=== PATIENT | female | born 1970 | race Caucasian/White ===

== ENCOUNTER 2025-03-29 19:58 | Emergency (ER) | payer SELFPAY ==
--- NOTE | ~2025-03-29 | XR_ITS ---
XR knee RT 3V Ordering provider: Israel Duran MD History: . fall, pain . Comparison: None. FINDINGS: BONES: No acute fracture or dislocation. JOINT SPACES: Narrowing of the lateral compartment. Marginal osteophytes in the knee and patella. SOFT TISSUES: Normal. IMPRESSION: No acute osseous abnormality right knee. Mild osteoarthritic changes. Reviewed, dictated and finalized at location A.
--- NOTE | ~2025-03-29 | CT_ITS ---
CT thoracic lumbar wo con Ordering provider: Leonor Fajardo PA-C History: . fall . Comparison: None. Technique: CT thoracic spine without contrast. Automated exposure control and iterative reconstructi on technique were employed. The dose-length product was 1372.93 mGy-cm. FINDINGS: VERTEBRAE: Normal height and alignment. No subluxation or visible acute fracture. Degenerative change s of the spine. Mild dextroscoliosis. DISC SPACES: Multilevel degenerative disc disease. Multilevel facet joint disease. Multilevel interve rtebral foraminal narrowing. PARASPINOUS SOFT TISSUES: Normal. IMPRESSION: No acute osseous abnormality of the thoracic spine. Multilevel degenerative disc disease, facet joint disease and multilevel intervertebral foraminal terrence rowing. CT thoracic lumbar wo con Ordering provider: Leonor Fajardo PA-C History: 54 years Female with . fall . Comparison: None. Technique: CT lumbar spine without contrast. Automated exposure control and iterative reconstruction technique were employed. The dose-length product was 1372.93 mGy-cm. FINDINGS: VERTEBRAE: Normal height and alignment. No subluxation or visible acute fracture. Postoperative saeed es at the level of L4, and L5. DISC SPACES: Disc spacers at the level of L4-L5 and L5-S1. Multilevel facet joint disease. Otherwise normal. Diffuse disc bulge at the level of L3-L4. Bilateral narrowing of the foramina with possible root comp ression. Mild diffuse disc bulge at the level of L4-5. PARASPINOUS SOFT TISSUES: Mild atheromatous disease of the abdominal aorta. Tiny Right kidney stone Bilateral sacroiliitis. IMPRESSION: No acute osseous abnormality. Postoperative changes. Multilevel disc bulges. Tiny right kidney stones. Reviewed, dictated and finalized at location A. IMPRESSION: No acute osseous abnormality of the thoracic spine. Multilevel degenerative disc disease, facet joint disease and multilevel interv ertebral foraminal narrowing. CT thoracic lumbar wo con Ordering provider: Leonor Fajardo PA-C History: 54 years Female with . fall . Comparison: None. Technique: CT lumbar spine without contrast. Automated exposure control and it erative reconstruction technique were employed. The dose-length product was 137 2.93 mGy-cm. FINDINGS: VERTEBRAE: Normal height and alignment. No subluxation or visible acute fractur e. Postoperative changes at the level of L4, and L5. DISC SPACES: Disc spacers at the level of L4-L5 and L5-S1. Multilevel facet xiomara nt disease. Otherwise normal. Diffuse disc bulge at the level of L3-L4. Bilateral narrowing of the foramina w ith possible root compression. Mild diffuse disc bulge at the level of L4-5. PARASPINOUS SOFT TISSUES: Mild atheromatous disease of the abdominal aorta. Tin y Right kidney stone Bilateral sacroiliitis.
--- NOTE | ~2025-03-29 | XR_ITS ---
XR hip RT 2V w AP pelvis Ordering provider: Leonor Fajardo PA-C History: . fall . Comparison: None. FINDINGS: BONES: No acute fracture or dislocation. HIP JOINT SPACES: Bilateral narrowing of the joint spaces. SACROILIAC JOINT SPACES/LUMBAR SPINE: The sacroiliac joint spaces are normal. Mild degenerative saeed es of the visualized lower lumbar spine. Postoperative changes in the lower spine. PUBIC SYMPHYSIS: Normal. SOFT TISSUES: Normal. IMPRESSION: No acute osseous abnormality pelvis and right hip. Bilateral mild to moderate osteoarthritic changes. Reviewed, dictated and finalized at location A.
--- NOTE | ~2025-03-29 | CT_ITS ---
CT cervical spine wo con Ordering provider: Leonor Fajardo PA-C History: . fall, head injury . Comparison: None. Technique: CT of the cervical spine was performed without contrast. Sagittal and coronal reformatted images were also obtained and reviewed. Automated exposure control and iterative reconstruction doug hnique were employed. The dose-length product was 502.67 mGy-cm. FINDINGS: VERTEBRAE: No subluxation or acute fracture. The occipital condyles are intact. Postoperative changes anteriorly seen at the level of C5 and C6. Posterior fixation is seen at the le vels of C4, C5 and C7. Degenerative changes of the spine. DISC SPACES: Disc spacer at the level of C5-C6. Degenerative disc disease at the level of C6-C7. PARASPINOUS SOFT TISSUES: Normal. Retropharyngeal carotid arteries are noted. IMPRESSION: No acute osseous abnormality cervical spine. Postoperative changes. Narrowing of the disks C6-C7. Reviewed, dictated and finalized at location A.
--- NOTE | ~2025-03-29 | CT_ITS ---
CT brain wo con Ordering provider: Leonor Fajardo PA-C History: 54 years Female with . fall, head injury . Comparison: None. Technique: CT of the head without contrast. Radiation reduction technique utilized.The dose-length pr oduct was 681 mGy-cm. FINDINGS: BRAIN PARENCHYMA AND CSF SPACES: No midline shift, mass effect or hemorrhage. The brain parenchyma a nd CSF spaces are otherwise normal. VISUALIZED PARANASAL SINUSES: Right sphenoid sinus disease otherwise, Well aerated. MASTOIDS: Well aerated. BONES: The bones appear intact. SOFT TISSUES: Visualized nasopharynx is normal. Superficial soft tissues are normal. IMPRESSION: No acute intracranial findings. Reviewed, dictated and finalized at location A.
[2025-03-29 20:07] VITALS: BP 145/68; PULSE 84; RESP 20; TEMP 36.7; O2SAT 97
--- NOTE | 2025-03-29 20:40 | PC.NURSE ---
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 Reports she does not remember the incident but denies any precipitating factors, states she falls all the time . Unsure if LOC but c/o pain to top of head. Denies thinners, A&Ox4, speech clear. Also c/o R knee pain. Takes oxycodone at home, last took at 1500. Pt states she is shaking d/t pain. XR complete. Awaiting provider eval. Patient repositioned for comfort. Call light in reach with family at bedside.
--- NOTE | 2025-03-29 20:44 | ED.LOWEXIN ---
HPI - Extremity Injury (Lower) General Chief Complaint: Extremity Injury, Lower <DONNY Munson Last Filed: 03/30/25 03:13> Stated Complaint: Injury to right knee-slid down stairs <DONNY Munson Last Filed: 03/30/25 03:13> Time Seen by Provider: 03/29/25 20:30 <DONNY Munson Last Filed: 03/30/25 03:13> History of Present Illness HPI Narrative: 54-year-old female presents to emergency department after slipping down 9 steps around 10:00 a.m. this morning. Patient states she was going up the stairs when she slipped and went down the stairs on her buttock, she did hit her head towards the bottom against the wall. Unsure if she lost consciousness. She is not anticoagulated. She is reporting pain to her right knee, right hip, neck and diffusely to her back. She does note she has chronic back pain and has several ?pins and rods? throughout her neck and back. She takes oxycodone for her chronic pain and took a dose at 3:00 p.m. today. Denies saddle anesthesia, bowel or bladder incontinence, urinary retention. No other injuries. <DONNY Munson Last Filed: 03/30/25 03:13> Related Data Allergies/Adverse Reactions: Allergies Allergy/AdvReac Type Severity Reaction Status Date / Time phenobarbital Allergy Severe Anaphylaxis Verified 03/29/25 20:00 Tetracyclines Allergy Severe Anaphylaxis Verified 03/29/25 20:00 <Leonor Fajardo PA-C - Last Filed: 03/30/25 03:13> Review of Systems Review of Systems: All systems reviewed & are unremarkable except as noted in HPI and below <DONNY Munson Last Filed: 03/30/25 03:13> Exam Narrative: GENERAL: Well-appearing, well-nourished, and in no acute distress. HEAD: Normocephalic, atraumatic. EYES: EOMI. ENT: Nares clear, no rhinorrhea or epistaxis. Mucous membranes moist. NECK/BACK: Diffuse cervical, thoracic and lumbar spinous tenderness without crepitus, step-offs or deformities. CHEST: Clear to auscultation. No respiratory distress. HEART: Regular rate and rhythm. No murmur heard. Normal peripheral pulses. No tenderness to chest ABDOMEN: Soft, nontender, nondistended, normal active bowel sounds. EXTREMITIES: Mild tenderness to the proximal right femur. Diffuse tenderness to the right knee with overlying edema, limited active and passive range of motion secondary to pain. DP pulse 2 +. Sensation intact throughout. SKIN: Warm, dry, no rash. NEURO: No focal deficits. Alert and oriented x4. Moving all extremities spontaneously. No saddle anesthesia. Sensation intact throughout <DONNY Munson Last Filed: 03/30/25 03:13> Course Vital Signs Vital signs: Vital Signs Temperature 98.0 F 03/29/25 20:07 Pulse Rate 84 03/29/25 20:07 Respiratory Rate 20 03/29/25 20:07 Blood Pressure 145/68 H 03/29/25 20:07 Pulse Oximetry 97 03/29/25 20:07 Oxygen Delivery Room Air 03/29/25 20:07 Temperature 98.0 F 03/29/25 20:07 Pulse Rate 71 03/30/25 00:06 Respiratory Rate 18 03/30/25 00:06 Blood Pressure 150/64 H 03/30/25 00:06 Pulse Oximetry 97 03/30/25 00:06 Oxygen Delivery Room Air 03/29/25 20:07 <Leonor Fajardo PA-C - Last Filed: 03/30/25 03:13> Vital Signs Temperature 98.0 F 03/29/25 20:07 Pulse Rate 84 03/29/25 20:07 Respiratory Rate 20 03/29/25 20:07 Blood Pressure 145/68 H 03/29/25 20:07 Pulse Oximetry 97 03/29/25 20:07 Oxygen Delivery Room Air 03/29/25 20:07 Temperature 98.0 F 03/29/25 20:07 Pulse Rate 71 03/30/25 00:06 Respiratory Rate 18 03/30/25 00:06 Blood Pressure 150/64 H 03/30/25 00:06 Pulse Oximetry 97 03/30/25 00:06 Oxygen Delivery Room Air 03/29/25 20:07 <Israel Duran MD - Last Filed: 03/29/25 23:27> MDM - Extremity Injury (Lower) MDM Narrative Medical decision making narrative: 54-year-old female with reported chronic neck and back pain presents to emergency department after a mechanical fall down 9 stairs earlier today. Patient did hit her head, reports unknown LOC. She is not anticoagulated. Endorsing pain to her right knee, right hip, neck and diffusely to her back. Vitals are stable. No evidence of cauda equina or significant cord compression on exam. Exam is notable for the above. Plan to obtain CT brain, cervical, thoracic and lumbar spine, x-ray of the right hip and x-ray of the right knee. Will provide Flexeril, lidocaine patch and Tylenol for pain. I was notified by nursing staff that patient does not want to be seen by a PA and is requesting a physician. Care signed out to Dr. Duran. Roger: Resumed care patient she states that she did not want to be seen by a PA. The patient was evaluated by myself in the emergency department. History is obtained from patient who is an independent historian and physical exam was performed. External medical records were reviewed at this time. Patient was administered a Lidoderm patch, 10 mg of oral Flexeril and 650 mg of oral Tylenol. Imaging studies obtained included CT thoracic, cervical and lumbar spine, right hip x-ray with AP pelvis, right knee x-rays all revealing no acute fractures. Images were independently interpreted by me and are currently pending final radiology interpretation. Differential diagnosis considerations include fractures, dislocations, musculoskeletal strain. Comorbidities impacting this visit include none. I have evaluated and discussed social determinants of health with the patient that could potentially impact subsequent diagnosis and treatment plans. On repeat assessment of the patient, reevaluation revealed that the patient is doing well and is in no acute distress. Patient symptoms have improved since she arrived to our emergency department. Patient is requesting something stronger for pain. She states that she takes Oxy is 10 mg at home. At this time she was administered Carmen 10. Repeat vital signs were all reviewed and noted to be stable. Differential diagnosis and treatment plan were discussed with the patient at bedside. Patient agrees with discussion and after shared medical decision making agrees with discharge. All questions were answered to the patient's satisfaction. Patient will follow up with her PCP in 3-5 days. Patient was provided with strict return precautions and instructed to return to the emergency department if any new or worsening symptoms develop. The patient was discharged in stable condition. <Leonor Fajardo PA-C - Last Filed: 03/30/25 03:13> 54-year-old female with reported chronic neck and back pain presents to emergency department after a mechanical fall down 9 stairs earlier today. Patient did hit her head, reports unknown LOC. She is not anticoagulated. Endorsing pain to her right knee, right hip, neck and diffusely to her back. Vitals are stable. No evidence of cauda equina or significant cord compression on exam. Exam is notable for the above. X-ray of the right knee shows no acute osseous abnormality. There is mild osteoarthritic changes. [place]: Resumed care patient she states that she did not want to be seen by a PA. The patient was evaluated by myself in the emergency department. History is obtained from patient who is an independent historian and physical exam was performed. External medical records were reviewed at this time. Patient was administered a Lidoderm patch, 10 mg of oral Flexeril and 650 mg of oral Tylenol. Imaging studies obtained included CT thoracic, cervical and lumbar spine, right hip x-ray with AP pelvis, right knee x-rays all revealing no acute fractures. Images were independently interpreted by me and are currently pending final radiology interpretation. Differential diagnosis considerations include fractures, dislocations, musculoskeletal strain. Comorbidities impacting this visit include none. I have evaluated and discussed social determinants of health with the patient that could potentially impact subsequent diagnosis and treatment plans. On repeat assessment of the patient, reevaluation revealed that the patient is doing well and is in no acute distress. Patient symptoms have improved since she arrived to our emergency department. Patient is requesting something stronger for pain. She states that she takes Oxy is 10 mg at home. At this time she was administered Carmen 10. Repeat vital signs were all reviewed and noted to be stable. Differential diagnosis and treatment plan were discussed with the patient at bedside. Patient agrees with discussion and after shared medical decision making agrees with discharge. All questions were answered to the patient's satisfaction. Patient will follow up with her PCP in 3-5 days. Patient was provided with strict return precautions and instructed to return to the emergency department if any new or worsening symptoms develop. The patient was discharged in stable condition. <Israel Duran MD - Last Filed: 03/29/25 23:27> Discharge Plan Discharge Clinical Impression: Fall from ground level, Strain, lumbosacral <Leonor Fajardo PA-C - Last Filed: 03/30/25 03:13> Patient Disposition: Home <Leonor Fajardo PA-C - Last Filed: 03/30/25 03:13> Condition: Improved <Leonor Fajardo PA-C - Last Filed: 03/30/25 03:13> Instructions: Antibiotic Form, Knee Sprain (DC), Fall Prevention (ED) <Leonor Fajardo PA-C - Last Filed: 03/30/25 03:13> Additional Instructions: Please follow-up with the family doctor within the next 3-5 days. Return to the emergency department if any new or worsening symptoms develop. <Leonor Fajardo PA-C - Last Filed: 03/30/25 03:13> Patient Language: Hungarian <Leonor Fajardo PA-C - Last Filed: 03/30/25 03:13> Follow-up/Referrals: PHYSICIAN,WEALTH MANAGEMENT DIRECTOR [Primary Care Provider] - Jose Antonio Moreno MD [Physician] - 3 Days <Leonor Fajardo PA-C - Last Filed: 03/30/25 03:13> Time of Disposition: 23:25 <Leonor Fajardo PA-C - Last Filed: 03/30/25 03:13> 23:25 <Israel Duran MD - Last Filed: 03/29/25 23:27>
[2025-03-29] MEDS: CYCLOBENZAPRINE HCL 10 MG TABLET PO (21:23)
[2025-03-29] MEDS: ACETAMINOPHEN 325 MG TABLET 650 MG PO (21:23)
[2025-03-29] MEDS: LIDOCAINE 5% PATCH 1 PATCH TRANSDERM (21:24)
--- NOTE | 2025-03-29 21:32 | PC.NURSE ---
patient verbalized concern of having a physican physical therapy assistant as provider and requested to have an MD be aware and overlook her care. this rn notified kathryn stevenson about patient request at this time. edp dr. craig verbalized overlooking patient care. patient verbalized that she would like to have more pain medications such as a fentanyl patch placed, 10mg of oxycodone or something that could help because lidocaine will not work . this rn notified edp dr. craig at this time.
[2025-03-29 22:19] VITALS: RESP 18
[2025-03-29 22:22] VITALS: BP 148/69; PULSE 74; RESP 18; O2SAT 96
[2025-03-30] MEDS: HYDROcodone/acetaminophen (*CRX) 10-325 MG TABLET 1 TAB PO (00:02)
[2025-03-30 00:06] VITALS: BP 150/64; PULSE 71; RESP 18; O2SAT 97
--- NOTE | 2025-03-30 00:07 | PC.NURSE ---
Patient medicated as per mar with NORCO. When describing possible side effects, patient states its doesnt do anything.
--- OUTSIDE RECORDS SUMMARY | 2025-03-30 15:33 | XMS_ITS | Encounter Summary ---
Author Organization [facility] Healthcare Address [address] [place] [address] Care Team Providers Care Regulatory Affairs Portfolio Leader Name Role Phone Cornell Perez MD Primary Care Provid er Encounter Details Date Type Department Care Team (Late st Contact Info) Description 03/26/2025 Orders Only [facility] Virtual Care [address] [place] [phone] Jerri Alejandre, SHAHIDA [address] [place] [address] Chronic bilateral low back pain with bilateral sciatica; Chronic neck pain; Other chronic pain Social History Tobacco Use Types Packs/Day Years Used Date Smoking Tobacco: Former Cigarettes Q uit: 03/18/2021 Smokeless Tobacco: Never AUDIT-C Answer Date Recorded Q1: How often do you have a drink containing alcohol? Never 09/05/2024 Q2: How many drinks containi ng alcohol do you have on a typical day when you are drinking? Patient does not drink Q3: How often do you have si x or more drinks on one occasion? Never 09/05/2024 PHQ-2 Answer Date Recorded PHQ-2 Total Score 6 08/01/2024 PHQ-9 Answer Date Recorded PHQ-9 Total Score 15 08/01/2024 Comments No Sex and Gender Information Value Date Recorded Sex Assigned at Not on file Legal Sex Female 11:15 AM CDT Gender Identity Not on file Sexual Orientation Not on file documented as of this encounter Ordered Prescriptions Prescription Sig Dispense Quantity Refills Last Filled Start Date End Date oxyCODONE (ROXICODONE) 10 mg tabletIndications:P ain Take 1 tablet (10 mg total) by mouth every 4 (four) hours 42 tablet 03/27/2025 documented in this encounter Progress Notes * Jerri Alejandre NP - 03/26/2025 11:09 AM CDT Pt requests a refill of her Oxycodone. Last refill was 03/20/2025, #[id number]. Pt is [facility]. Had a VCCappt 02/19/2025. She has an appt with new PCP, Dr. Bailey, 09/04/2025. documented in this encounter Plan of Treatment Not on file documented as of this encounter Visit Diagnoses Diagnosis Chronic bilateral low back pain with bilateral sciatica Chronic neck pain Cervicalgia Other chronic pain documented in this encounter Discontinued Medications Medication Sig Discontinue Reason Start Date End Da te oxyCODONE (ROXICODONE) 10 mg tabletIndications:Pain Take 1 tablet (10 mg total) by mouth every 4 (four) hours Reorder 03/19/2025 03/26/2025 documented as of this encounter Care Teams Regulatory Affairs Portfolio Leader Relationship Specialty Start Date End Date Cornell Perez MD [address] [place] [address] PCP - General Family Medicine 08/17/21 documented as of this encounter
--- OUTSIDE RECORDS SUMMARY | 2025-03-30 15:33 | XMS_ITS | Continuity of Care Document ---
Author Organization [facility] Address [address] [facility] [address] [place] [address] Phone Care Team Providers Care Nutrition Counselor Name Role Phone Ailyn Ventura MD Unavailable Unavailable Allergies, Adverse Reactions, Alerts Substance Reaction Status Criticality phenobarbital Active No Information tetracycline Active No Information Medications Medication Instructions Dosage Effective Dates (start - stop) Status Comments WELLBUTRIN SR (unknown strength) take 1 tablet by oral route 2 times every day Not Available - Active hydrochlorothiazide 12.5 mg tablet take 1 tablet by oral route every day 12.5 MG - Active amlodipine 5 mg tablet take 1 tablet by oral route every day 5 MG - Active gabapentin 800 mg tablet take 1 tablet b y oral route 3 times every day 800 MG - Active omeprazole 40 mg capsule,delayed release take 1 capsule by oral route every day before a meal 40 MG - Active Vitamin D2 1,250 mcg (50,000 unit) capsule take 1 capsule by oral route 2 times every week [id number] UNITS - Active oxycodone 10 mg tablet take 2 tablet by oral route every 4 - 6 hours 20 MG - Active prednisone 10 mg tablet Take 4tabs PO daily x3days, then 3tabs PO daily x3days, then 2tabs PO daily x3days, then 1tab PO daily x3days - No Longer Active Procedures Procedure Date Office/outpatient Visit, Est PHONE E/M BY PHYS 11-20 MIN Kenalog 10mg Office/outpatient Visit, Est Office/outpatient Visit, New Results Test Name Date and Time Measure Units Reference Range Abnormal Flag Status Comments Panel Description: CBC W Auto Differential panel - Blood Final Absolute Basophil 021 23:24:00 0.13 k/uL 0.00 - 0.20 Final [facility] Lbgkpc540Eric Mahajan, [id number] Absolute Eosinophil Jan-18- 021 23:24:00 0.17 k/uL 0.00 - 0.70 Final [facility] Copkuh194Ramses Mahajan, [id number] Absolute Immature Granulocytes Jan-- 021 23:24:00 0.06 k/uL 0.00 - 0.10 Final [facility] [place] [address] Morgan Mahajan, [id number] Absolute Lymphocyte Jan- 021 23:24:00 3.07 k/uL 0.60 - 5.50 Final [facility] [place] [address] [place] Mahajan, [id number] Absolute Monocyte 021 23:24:00 0.48 k/uL 0.10 - 1.60 Final [facility] [place] [address] Morgan Mahajan, [id number] Absolute Neutrophil 021 23:24:00 8.44 k/uL 1.60 - 9.30 Final [facility] Shqkig520Eric Mahajan, [id number] Basophils 021 23:24:00 1.1 % Final [facility] Qumzoq669Eric Mahajan, [id number] Eosinophils 021 23:24:00 1.4 % Final [facility] Lynzrv493Eric Mahajan, [id number] Hematocrit Jan-- 021 23:24:00 47.6 % 35.0 - 48.0 Final [facility] Ekrbaq462narciso Mahajan, [id number] Hemoglobin Jan-- 021 23:24:00 15.3 g/dL 11.5 - 16.0 Final [facility] Bmutwx815Eric Mahajan, [id number] Immature Granulocytes 23:24:00 0.5 % Final [facility] [place] [address] [address] Mahajan, [id number] Lymphocytes 23:24:00 24.9 % Final [facility] Pcqmkx805Ramses Mahajan, [id number] MCH 23:24:00 28.3 pg 27.0 - 34.0 Final [facility] [place] [address] [address] Mahajan, [id number] MCHC 23:24:00 32.1 g/dL 31.0 - 37.0 Final [facility] [place] [address] [address] Mahajan, [id number] MCV 23:24:00 88.0 fL 78.0 - 100.0 Final [facility] [place] [address] Morgan Mahajan, [id number] Monocytes 23:24:00 3.9 % Final [facility] [place] [address] Morgan Mahajan, [id number] MPV 23:24:00 10.8 fL 7.5 - 14.0 Final [facility] [place] [address] Morgan Mahajan, [id number] NRBC RE, Nucleated Red Blood Cell Percent 23:24:00 0.0 % 0.0 - 1.0 Final [facility] [place] [address] Morgan Mahajan, [id number] Platelet Count 23:24:00 259 k/mm3 130 - 450 Final [facility] [place] [address] Morgan Mahajan, [id number] RBC 23:24:00 5.41 m/mm3 3.70 - 5.40 H Final [facility] [place] [address] Morgan Mahajan, [id number] RDW(cv) 23:24:00 15.4 % 11.0 - 15.0 H Final [facility] [address], [id number] RDW(sd) 23:24:00 49.9 fL 38.0 - 49.0 H Final [facility] [address], [id number] Segmented Neutrophils 23:24:00 68.2 % Final Automated [facility] [address], [id number] WBC 23:24:00 12.4 k/mm3 4.0 - 11.0 H Final [facility] [address], [id number] Panel Description: CRP Final CRP 23:24:00 5.1 mg/L <=7.9 Final Significantly decreased C-Reactive Proteins values may be obtained from samples taken from patients who have been treated with carboxypenicill ins.[facility] [address], [id number] Panel Description: Erythrocyte Sedimentation Rat e Final Erythrocyte Sedimentation Rate 23:24:00 11 mm/hr <=20 Final Erythrocyte Sedimentation Rate (ESR) specimens are stable for 4-6 hours at room temperature, and 24 hours if refrigerated. ESR results trend lower with increased specimen age. Consider use of C-reactive protein (CRP) to assess acute phase responses.[facility] [address], [id number] Panel Description: Comprehensive Metabolic Panel Final Alanine Aminotransferase 23:24:00 25 IU/L 5 - 46 Final [facility] [address], [id number] Albumin 23:24:00 4.2 g/dL 3.8 - 5.1 Final Note: new reference range effective 2020.[facility] [address], [id number] Albumin/Globulin Ratio 23:24:00 1.4 1.0 - 2.5 Final [facility] [place] [address] Morgan Mahajan, [id number] Alkaline Phosphatase 23:24:00 65 IU/L 37 - 127 Final [facility] [place] [address] Morgan Mahajan, [id number] Anion Gap 23:24:00 11 4 - 18 Final [facility] [address] Chanelle Mahajan, [id number] Aspartate Aminotransferase 23:24:00 14 IU/L 11 - 40 Final [facility] [address] Chanelle Mahajan, [id number] Bilirubin, Total 23:24:00 0.4 mg/dL <=1.3 Final [facility] [place] [address] Morgan Mahajan, [id number] BUN/Creatinine Ratio 23:24:00 21.9 10.0 - 28.0 Final [facility] [address] Chanelle Mahajan, [id number] Calcium 23:24:00 9.6 mg/dL 8.7 - 10.4 Final [facility] [place] [address] Morgan Mahajan, [id number] Carbon Dioxide (CO2) 23:24:00 27 mmol/L 20 - 31 Final Note: new reference range effective 2020.[facility] [address] Chanelle Mahajan, [id number] Chloride 23:24:00 101 mmol/L 98 - 108 Final Note: new reference range effective 2020.[facility] [address] Chanelle Mahajan, [id number] Creatinine 23:24:00 0.73 mg/dL 0.60 - 1.40 Final [facility] [place] [address] Morgan Mahajan, [id number] GFR Estimated (Non-) 23:24:00 97 mL/min/ 1.73m2 >=60 Final [facility] [address], [id number] GFR Estimated () 23:24:00 112 mL/min/ 1.73m2 >=60 Final [facility] [address] [place], [id number] Globulin 23:24:00 3.0 g/dL 1.9 - 3.7 Final [facility] Wqdbfr[address], [id number] Glucose 23:24:00 135 mg/dL 65 - 99 H Final Glucose reference range reflects fasting state.[facility] [address] [place], [id number] Potassium 23:24:00 3.7 mmol/L 3.6 - 5.3 Final [facility] [address] [place], [id number] Protein, Total 23:24:00 7.2 g/dL 6.3 - 8.0 Final [facility] [address]qc[address] [place], [id number] Sodium 23:24:00 139 mmol/L 135 - 145 Final [facility] Howusk[address], [id number] Urea Nitrogen (BUN) 23:24:00 16 mg/dL 6 - 19 Final Note: new reference range effective 2020.[facility] [address] [place], [id number] Advance Directives Directive Yes / No Effective Date File Name No Information Encounters Encounter Description Practice Location Reason(s) For Visit Diagnoses Date Provider Providers Copied on Encounter [facility], [address], [place], [place], [id number], tel:[phone] VARSHA Parson No Information Lorenzo Robertson. [address], [place], [place], [id number], [place]. tel:[phone] Office/outpa tient Visit, Est [facility], [address], [place], [place], [id number], [place] tel:[phone] VARSHA Andersoncson Ankylosing Spondylitis (chief complaint) Other specified disorder involving the immune mechanismOther specified arthritis, multiple sitesAnkylosing spondylitis, unspecified site of spineAxial spondyloarthriti sDegenerative Disc DiseaseHigh risk medication use 1 Cabacungallegra Robertson. [address], [place], [place], [id number], [place]. tel:[phone] Referring Provider: Ailyn Ventura , [address], [place], [address] . tel:[phone] [facility], [address], [place], [place], [id number], [place] tel:[phone] VARSHA [place] Joint Pain (chief complaint) Other specified disorder involving the immune mechanismOther specified arthritis, multiple sitesAnkylosing spondylitis, unspecified site of spineAxial spondyloarthriti sDegenerative Disc DiseaseHigh risk medication use 1 Furrier Sarah. [address], [place], [place], [id number], [place]. tel:[phone] PHONE E/M BY PHYS 11-20 MIN [facility], [address], [place], [place], [id number], [place] tel:[phone] [facility] Other specified disorder involving the immune mechanismOther specified arthritis, multiple sitesDegenerativ e Disc DiseaseAxial spondyloarthriti sHigh risk medication useAnkylosing spondylitis, unspecified site of spine 0 Furrier Sarah. [address], [place], [place], [address], [place]. tel:[phone] Referring Provider: Ailyn Ventura , [address], [place], [address] . tel:[phone] Office/outpa [facility]ient [facility], [facility], [address], [place], [place], [id number], [place] tel:[phone] VARSHA [place] Joint Pain (chief complaint) Other specified disorder involving the immune mechanismOther specified arthritis, multiple sitesDegenerativ e Disc Disease 0 [place] Ailyn. [address], [place], [place], [address], [place]. tel:[phone] Referring Provider: Ailyn Ventura , [address], [place], [address] . tel:[phone] Office/outpa tient Visit, [facility], [address], [place], [place], [id number], [place] tel:[phone] VARSHA [place] Joint Pain (chief complaint) Other specified arthritis, multiple sitesOther specified disorder involving the immune mechanismDegener ative Disc Disease 0 [place] Ailyn. [address], [place], [place], [id number], [place]. tel:[phone] Referring Provider: Torin Emerson , [address], [place], [address]. tel:[phone] Family History Family Member Type Diagnosis Age At Onset Problem Family history of Blood clot s Problem Family history of hypertensi on Mother Problem osteoporosis Mother Problem Cancer Mother Problem Diabetes mellitus Problem Family history of stroke Mother Problem gout Immunizations Vaccine Date Status Comments MODERNA COVID19 not administered Note: pt hasn't received ; Source: Source Unspecified AFLURIA QUAD not administered N ote: Pt had flu shot elsewhere ; Source: Source Unspecified Payers Payer name Insurance type Covered republican ID Authoriza tion(s) [facility] [id number] Social History Type Description Quantity Date Captured Comments Sex Female Smoking Status No Information Chief Complaint And Reason For Visit No Information Reason For Referral Reason For Referral No Information Plan Of Treatment Date Type Action Status Referral Ordered: HUMIRA(CF) PEN 40mg SQ every 2 weeks Appointment date/timeframe: every 2 weeks ordered Patient Education Ankylosing Spo ndylitis: Care Instruct~ completed Future Order: Lab Order CBC (Aut omated) ([id number]), Collected on: , Sent on: Sent Future Order: Lab Order CMP (100 1), Collected on: , Sent on: Sent Future Order: Lab Order C-Reacti ve Protein (1009), Collected on: , Sent on: Sent Future Order: Lab Order Sed Rate (Automated) ([id number]), Collected on: , Sent on: Sent Future Order: Radiology Order Sa croiliac Joint X-ray (3+ views) ([id number]), Ordered on: Ordered Future Order: Radiology Order Fo ot X-ray; Limited (2 views) ([id number]), Ordered on: Ordered Future Order: Radiology Order Rock nd X-ray; Complete (3+ views) ([id number]), Ordered on: Ordered History Of Present Illness Encounter Date Complaint History Of Prese nt Illness Ankylosing Spondylitis Joint Pain Joint Pain Joint Pain Joint Pain Functional Status Date Functional Assessmen t No Information Instructions Date Instruction Additional Infor mation No Information Assessments Type Assessment Date No Information Patient Care Teams Name Effective Dates (start - stop) Status Members No Information
--- OUTSIDE RECORDS SUMMARY | 2025-03-30 15:33 | XMS_ITS | Clinical Summary ---
Author Organization [facility] Address [facility] [place] [address] Care Team Providers Care Car Attendant Name Role Phone Sameer Perez MD Primary Care Provider [phone] Allergies Active Allergy Reactions Criticality Noted Date Comments Iodine Nausea Only 12/24/2023 Dronabinol Other (see comment) High 11/08/2011 QUIT BREATHING Nsaids Other (see comment) High 02/19/2013 DECREASED KIDNEY FUNCTION Phenobarbital Anaphylaxis High 06/18/2020 Statins Leg Pain 05/03/2024 anaphylaxis Tetracycline Anaphylaxis High 06/18/2020 Medications albuterol sulfate HFA 108 (90 Base) MCG/ACT inhaler Inhale 2 puffs into the lungs every 4 (four) hours as needed for Shortness of breath. 01/15/20 20 Active escitalopram 20 MG tablet Take 1 tablet (20 mg total) by mouth daily. Active amLODIPine 5 MG tablet Take 1 tablet (5 mg total) by mouth daily. Active oxyCODONE immediate release (ROXICODONE) 10 MG immediate release tablet Take 1 tablet (10 mg total) by mouth every 4 (four) hours as needed. 08/13/20 22 Active ondansetron (ZOFRAN-ODT) 4 MG disintegrating tablet Take 1 tablet (4 mg total) by mouth every 8 (eight) hours as needed for Nausea. 20 tablet 12/24/19 24 Active omeprazole (PRILOSEC) 40 MG capsule Take 1 capsule (40 mg total) by mouth daily. 10/25/20 23 Active Chlorzoxazone 750 MG Tab Take 1 tablet by mouth 3 (three) times daily. 05/02/20 24 Active pregabalin (LYRICA) 150 MG capsule Take 1 capsule (150 mg total) by mouth 2 (two) times daily. Active vitamin D2, ergocalciferol, (DRISDOL) 1.25 mg capsule Take 1 capsule (1.25 mg total) by mouth every 7 days. Sundays Active ipratropium-albute rol (DUONEB) 0.5-2.5 (3) MG/3ML Solution Take 3 mLs by nebulization 4 (four) times daily. 360 mL 2 05/15/20 Active montelukast (SINGULAIR) 10 MG tablet Take 1 tablet (10 mg total) by mouth nightly at bedtime. 30 tablet 2 05/15/20 Active buPROPion XL (WELLBUTRIN XL) 150 MG 24 hr tablet Take 1 tablet (150 mg total) by mouth daily. 03/22/20 24 025 Active Problems Problem Noted Date Diagnosed Date Low back pain 08/23/2024 Asthma exacerbation ([facility]) 05/08/2024 COPD exacerbation ([facility]) 05/06/2024 Essential hypertension 06/18/2020 Depression with anxiety 12/09/2019 Immunizations Immunization Administration Dates Next Due Influenza (Generic) 08/28/2020 Influenza Adult (Generic) 08/19/2023,08/30/2022, 08/17/2021,08/17/2021 Family History Medical History Relation Comments Arthritis Father Hyperlipidemia Father Breast Cancer Maternal Aunt Arthritis Maternal Grandfather Hyperlipidemia Maternal Grandfather Arthritis Maternal Grandmother Hyperlipidemia Maternal Grandmother Arthritis Mother Diabetes Mother Hyperlipidemia Mother Osteoarthritis Mother Arthritis Paternal Grandfather Hyperlipidemia Paternal Grandfather Arthritis Paternal Grandmother Hyperlipidemia Paternal Grandmother Relation Status Comments Father Maternal Aunt Alive Maternal Grandfather Maternal Grandmother Mother Paternal Grandfather Paternal Grandmother Social History Tobacco Use Types Packs/Day Years Used Date Smoking Tobacco: Former Cigarettes Q uit: 03/28/2020 Passive Smoke Exposure: Never Smokeless Tobacco: Never Tobacco Cessation:Counseling Given: Not Answered Alcohol Use Standard Drinks/Week Comments Not Currently 0 (1 standard drink = 0.6 oz pur e alcohol) B1300 Health Literacy Answer Date Recor ded How often do you need to hav e someone help you when you read instructions, pamphlets, or other written material from your doctor or pharmacy? Never 05/07/2024 [facility] Utilities Answer Date Recorded In the past 12 months has th e electric, gas, oil, or water company threatened to shut off services in your home? No 05/07/2024 Humiliation, Afraid, Rape, and Kick questionnair e Answer Date Recorded Within the last year, have y ou been afraid of your partner or ex-partner? No 05/07/2024 Within the last year, have y ou been humiliated or emotionally abused in other ways by your partner or ex-partner? No Within the last year, have y ou been kicked, hit, slapped, or otherwise physically hurt by your partner or ex-partner? No 05/07/2024 Within the last year, have y ou been raped or forced to have any kind of sexual activity by your partner or ex-partner? No 05/07/2024 Social Connection and Isolation Panel [NHANES] A nswer Date Recorded In a typical week, how many times do you talk on the phone with family, friends, or neighbors? Three times a week 05/07/2024 How often do you get togethe r with friends or relatives? Twice a week 05/07/2024 How often do you attend chur or quaker services? Patient declined 05/07/2024 Do you belong to any clubs o r organizations such as voodoo groups, unions, fraternal or athletic groups, or school groups? No 05/07/2024 How often do you attend meet ings of the clubs or organizations you belong to? Never 05/07/2024 Are you , , di vorced, , never , or living with a partner? 05/07/2024 AUDIT-C Answer Date Recorded Q1: How often do you have a drink containing alc ohol? Patient declined 05/07/2024 Q2: How many drinks containi ng alcohol do you have on a typical day when you are drinking? Patient declined 05/07/2024 Q3: How often do you have si x or more drinks on one occasion? Patient declined 05/07/2024 Overall Financial Resource Strain (CARDIA) Answe r Date Recorded How hard is it for you to pa y for the very basics like food, housing, medical care, and heating? Not hard at all 05/07/2024 PHQ-2 Answer Date Recorded Patient Health Questionnaire-2 Score 2 05/03/2024 [facility] [place] [facility] - Occupational Stress Questionnaire Answer Date Recorded Do you feel stress - tense, restless, nervous, or anxious, or unable to sleep at night because your mind is troubled all the time - these days? Only a little 05/07/2024 Exercise Vital Sign Answer Date Recorde d On average, how many days pe r week do you engage in moderate to strenuous exercise (like a brisk walk)? 0 days 05/07/2024 On average, how many minutes do you engage in exercise at this level? 0 min 05/07/2024 Hunger Vital Sign Answer Date Recorded Within the past 12 months, y ou worried that your food would run out before you got the money to buy more. Never true 05/07/20 24 Within the past 12 months, t he food you bought just didn't last and you didn't have money to get more. Never true 05/07/2024 PRAPARE - Transportation Answer Date Re corded In the past 12 months, has l ack of transportation kept you from medical appointments or from getting medications? No 04/28 In the past 12 months, has l ack of transportation kept you from meetings, work, or from getting things needed for daily living? No 05/07/2024 Housing Stability Vital Sign Answer Pierce e Recorded In the last 12 months, was t here a time when you were not able to pay the mortgage or rent on time? No 05/07/2024 In the past 12 months, how m any times have you moved where you were living? 1 05/07/2024 At any time in the past 12 m [facility], were you homeless or living in a chcf (including now)? No 05/07/2024 Comments No Sex and Gender Information Value Date Recorded Sex Assigned at Female 04/10/2022 7:50 PM CDT Legal Sex Female 5:05 PM CDT Gender Identity Female 04/10/2022 7:50 PM CDT Sexual Orientation Straight 04/10/2022 7: 50 PM CDT Last Filed Vital Signs Vital Sign Reading Time Taken Comments Blood Pressure 154/65 05/15/2024 7:20 AM CDT Pulse 66 05/15/2024 7:20 AM CDT Temperature 36.3 C (97.3 F) 05/15/2024 7:20 AM CDT Respiratory Rate 18 05/15/2024 7:20 AM CDT Oxygen Saturation 95% 05/15/2024 7:20 AM CDT Inhaled Oxygen Concentration - - Weight 90.2 kg (198 lb 13.7 oz) 05/15/2024 4:16 AM CDT Height 160 cm (5' 3 ) 05/07/2024 12:33 PM CDT Body Mass Index 35.23 05/07/2024 12:33 PM CDT Plan of Treatment Health Maintenance Due Date Last Done Comments Colorectal Cancer Screening Colonoscopy (10 Years) 1971 Annual Physical 1974 Hepatitis C 1989 DTaP, Tdap and Td Vaccines ( 1 - Tdap) 1990 Hepatitis B Vaccines (1 of 3 - 19+ 3-dose series) 1990 Pneumococcal Vaccine: 50+ Ye ars (1 of 2 - PCV) 1990 Zoster Vaccines (1 of 2) 2021 COVID-19 Vaccine (1 - 2023-2 5 season) 2024 PHQ-2 (Physician [place]) 11/28/2024 05/03/2024 Mammogram Screening 12/02/2025 12/02/2023 Meningococcal B Vaccine Aged Out No l onger eligible based on patient's age to complete this topic Meningococcal Vaccine Aged Out No jose rafael tanika eligible based on patient's age to complete this topic RSV Immunizations Under 20 Months Aged Out No longer eligible based on patient's age to complete this topic Procedures Procedure Name Priority Date/Time Associated Diagnosis Comments MG SCREENING W LIVE MAXWELL DIGI Routine 12/02/2023 2:51 PM [employer] Visit for screening mammogram from Last 3 Months or Most Recently Relevant to Health Maintenance Results * MG SCREENING W LIVE MAXWELL DIGI (12/02/2023 2:51 PM [employer]) Anatomical Region Laterality Modality Breast Bilateral Mammography 12/27/2023 3:44 PM [employer] Narrative 12/27/2023 3:50 PM [employer] EXAMINATION: Digital bilateral screening mammogram with 3-D tomosynthesis EXAM DATE/TIME: 12/02/2023 2:32 PM REASON FOR EXAM: scr Maternal aunt with breast carcinoma. COMPARISON: 05/18/2016. 08/28/2019 Technique: Digital screening mammography of both breasts was performed in addition to 3-D Tomosynthesis technique. This study was read with the assistance of a computer-aided detection system. Tissue density: There are scattered areas of fibroglandular density. Findings: There is no new focal asymmetry, dominant mass lesion, area of skin thickening, or cluster of suspicious appearing calcifications in either breast to suggest malignancy. ===== IMPRESSION: ===== 1. Stable mammographic appearance with no new findings to suggest malignancy in either breast. Assessment: ACR BI-RADS 1 - NEGATIVE Recommendation: 1:Routine Screening Bilateral Comments: Ordered By: SAMEER PEREZ Interpreted By: Laureano Cantor, 12/27/2023 3:44 PM Sameer Perez MD MAMMO Final Result from Last 3 Months or Most Recently Relevant to Health Maintenance Insurance [place] Advance Directives * Full Code (Latest Code Status on File) Date Activated Date Inactivated Comments 05/06/2024 12:51 PM 05/15/2024 2:43 PM Care Teams Car Attendant Relationship Specialty Start Date End Date Sameer Perez MD [address] [place] [address] PCP - General FAMILY PRACTICE 04/10/22
--- OUTSIDE RECORDS SUMMARY | 2025-03-30 15:34 | XMS_ITS | Patient Health Record ---
Author Organization [facility], Address [address] [place] [address] Care Team Providers Care Tool Analyst Name Role Phone Jerome Zapata PA-C Primary Care Provider Unava isabella Keith Galicia Unavailable [phone] Reason For Referral No Information Plan Of Treatment No Information Insurance Providers Payer Name Payer Address Payer Phone Subscriber Number Group Number Insured Name Patient Relationship to Insured Coverage Start Date Coverage End Date [facility] Plan [address] [address] [place] [address] [phone] [id number] Nelly Carcamo Self - patient is the insured
--- OUTSIDE RECORDS SUMMARY | 2025-03-30 15:34 | XMS_ITS | Clinical Summary ---
Author Organization [facility] Address [address] [place] [address] Care Team Providers Care Landscaping Specialist Name Role Phone Unavailable Primary Care Provider Unavailabl e Source Comments [facility],non-owned Affiliates and Associated Physician Practices is amultiple site organization consisting of ambulatory clinics and hospital sitesin [place], [place], [place] and [place]. This disclosure is being madepursuant to the Care Everywhere program and may not contain all information available regarding this patient. Last updated 18.[facility] Social History Tobacco Use Types Packs/Day Years Used Date Smoking Tobacco: Never Assessed Comments Unknown Sex and Gender Information Value Date Recorded Sex Assigned at Not on file Legal Sex Female 2:58 PM CDT Gender Identity Not on file Sexual Orientation Not on file Plan of Treatment Health Maintenance Due Date Last Done Comments COLOGUARD (AGES 45-75) - COL ON CA SCREENING 1971 COLON MONITORING 1971 COLONOSCOPY - COLON CA SCREENING 1971 CT COLONOGRAPHY - COLON CA SCREENING 1971 Colorectal Cancer Screening 1971 FIT - COLON CA SCREENING 1971 FLEX SIG - COLON CA SCREENING 1971 LIPID TESTING 1971 MAMMOGRAM 1971 PAP SMEAR 1971 HIV SCREENING 1986 HEPATITIS C SCREENING 10/25/1989 DTAP/TDAP/TD VACCINES (1 - Tdap) 1990 HEPATITIS B VACCINE (1 of 3 - 19+ 3-dose series) 1990 PNEUMOCOCCAL VACCINE 50+ (1 of 1 - PCV) 2021 ZOSTER VACCINE (1 of 2) 2021 COVID-19 VACCINE (1 - 2023-2 5 season) 2024 DEPRESSION SCREENING 11/28/2024 INFLUENZA VACCINE (Season Ended) 2025 HIB VACCINE Aged Out No longer eligi ble based on patient's age to complete this topic HPV VACCINE Aged Out No longer eligi ble based on patient's age to complete this topic MENINGOCOCCAL (Group B) VACC INE SHARED DECISION-MAKING Aged Out No longer eligibl e based on patient's age to complete this topic MENINGOCOCCAL GROUPS A/C/Y/W VACCINE Aged Out No longer eligible b ased on patient's age to complete this topic Insurance [facility]
--- OUTSIDE RECORDS SUMMARY | 2025-03-30 15:34 | XMS_ITS | Clinical Summary ---
Author Organization [address] Address [address] [place] [phone] Care Team Providers Care Chain Mender Name Role Phone Cornell Perez MD Primary Care Provid er Allergies Active Allergy Reactions Criticality Noted Date Comments Dronabinol Other (See comments) High 11/08/2011 QUIT BREATHING Iodine Nausea only Low 12/24/2023 Phenobarbital Anaphylaxis High 06/18/2020 Tetracycline Anaphylaxis High 06/18/2020 Medications acetaminophen 500 mg capsule Take 2 capsules (1,000 mg total) by mouth every 6 (six) hours 30 tablet 022 Active OneTouch Ultra2 Meter misc USE DIRECTED 1 each 023 Active chlorhexidine (PERIDEX) 0.12 % solution Apply 15 mL to the mouth or throat 3 (three) times a day 120 mL 5 023 Active albuterol HFA (PROVENTIL HFA,VENTOLIN HFA,PROAIR HFA) 90 mcg/actuation inhalerIndication s:Gastroesophagea l reflux disease without esophagitis,Mild intermittent asthma without complication INHALE 2 PUFFS BY MOUTH EVERY 6 HOURS NEEDED FOR WHEEZING 18 g 1 023 Active naloxone (NARCAN) 4 mg/actuation spray,non-aerosol Administer 1 spray into affected nostril(s) as needed for opioid reversal or respiratory depression Call 911. Administer a single spray in one nostril. Repeat every 3 minutes as needed if no or minimal response. 1 each 023 Active OneTouch Delica Plus Lancet 33 gauge misc Test once to twice daily as directed. 100 each 2 023 Active chlorzoxazone 750 mg tabletIndications :Chronic neck pain,Chronic bilateral low back pain with bilateral sciatica Take 750 mg by mouth 3 (three) times a day 60 tablet 5 024 Active buPROPion XL (WELLBUTRIN XL) 300 mg 24 hr tablet Take 1 tablet (300 mg total) by mouth every morning 90 tablet 3 024 2024 Active ipratropium-albut Yanely (DUO-NEB) 0.5-2.5 mg/3 mL nebulizer solutionIndicatio ns:Chronic Obstructive Pulmonary Disease with Bronchospasms Take 3 mL by nebulization 4 (four) times a day as needed for wheezing or shortness of breath 90 mL 11 024 Active montelukast (SINGULAIR) 10 mg tablet Take 1 tablet (10 mg total) by mouth nightly 90 tablet 3 024 Active [employer] Ultra Test strip USE TO TEST BLOOD SUGAR ONE TO THREE TIMES DAILY 100 strip 5 024 Active amLODIPine (NORVASC) 5 mg tablet TAKE 1 TABLET(5 MG) BY MOUTH DAILY 100 tablet 1 024 Active pregabalin (LYRICA) 150 mg capsule Take 1 capsule (150 mg total) by mouth 2 (two) times a day 60 capsule 5 024 Active omeprazole (PriLOSEC) 40 mg capsule TAKE 1 CAPSULE(40 MG) BY MOUTH DAILY 90 capsule 1 024 Active fluticasone propionate (FLONASE) 50 mcg/actuation nasal sprayIndications: Eustachian tube dysfunction, bilateral Administer 2 sprays into each nostril daily 3 each 3 024 Active ibuprofen (ADVIL,MOTRIN) 800 mg tablet TAKE 1 TABLET(800 MG) BY MOUTH EVERY 8 HOURS NEEDED FOR PAIN 90 tablet 5 024 Active ondansetron ODT (ZOFRAN-ODT) 4 mg disintegrating tablet Take 1 tablet (4 mg total) by mouth every 8 (eight) hours as needed for nausea or vomiting 20 tablet 025 Active escitalopram (LEXAPRO) 20 mg tabletIndications :Depression with anxiety TAKE 1 TABLET(20 MG) BY MOUTH DAILY 100 tablet 025 Active ergocalciferol (VITAMIN D) 50,000 unit capsule TAKE 1 CAPSULE BY MOUTH 1 TIME A WEEK 12 capsule 025 Active tiZANidine (ZANAFLEX) 4 mg tabletIndications :Chronic neck pain,Chronic bilateral low back pain with bilateral sciatica TAKE 1 TABLET BY MOUTH EVERY 6 HOURS NEEDED FOR MUSCLE SPASMS 30 tablet 3 025 Active oxyCODONE (ROXICODONE) 10 mg tabletIndications :Pain Take 1 tablet (10 mg total) by mouth every 4 (four) hours 42 tablet 025 Active semaglutide (Wegovy) 0.25 mg/0.5 mL auto-injectorIndi cations:Class 1 obesity due to excess calories with serious comorbidity and body mass index (BMI) of 32.0 to 32.9 in adult Inject 0.5 mL (0.25 mg total) under the skin every 7 days 2 mL 5 024 2024 Discontinued(T herapy completed) tiZANidine (ZANAFLEX) 4 mg tabletIndications :Chronic neck pain,Chronic bilateral low back pain with bilateral sciatica TAKE 1 TABLET BY MOUTH EVERY 6 HOURS NEEDED FOR MUSCLE SPASMS 30 tablet 3 025 2024 Discontinued oxyCODONE (ROXICODONE) 10 mg tabletIndications :Pain Take 1 tablet (10 mg total) by mouth every 4 (four) hours 42 tablet 025 2024 Discontinued(R eorder) oxyCODONE (ROXICODONE) 10 mg tabletIndications :Pain Take 1 tablet (10 mg total) by mouth every 4 (four) hours 42 tablet 025 2024 Discontinued(R eorder) oxyCODONE (ROXICODONE) 10 mg tabletIndications :Pain Take 1 tablet (10 mg total) by mouth every 4 (four) hours 42 tablet 025 2024 Discontinued(R eorder) oxyCODONE (ROXICODONE) 10 mg tabletIndications :Pain Take 1 tablet (10 mg total) by mouth every 4 (four) hours 42 tablet 025 2024 Discontinued(R eorder) Active Problems Problem Noted Date Diagnosed Date Class 1 obesity due to exces s calories with serious comorbidity and body mass index (BMI) of 33.0 to 33.9 in adult 03/13/2025 Controlled substance agreement signed 05/18/2024 Asthma exacerbation 05/08/2024 Pituitary abnormality 04/20/2023 Ankylosing spondylitis 04/20/2023 Postural dizziness with presyncope 08/31/2022 Nausea 08/29/2022 Cervical disc disorder with myelopathy of mid-cervical region 03/11/2022 Overview (03/11/2022): Added automatically from request for surgery [id number] Essential hypertension 06/18/2020 Depression with anxiety 12/09/2019 Neck pain 06/18/2019 Cervical radiculopathy 06/18/2019 Lumbar radiculopathy 11/30/2018 Pain of lumbar spine 11/30/2018 Degeneration of lumbar intervertebral disc 11/30 Spinal stenosis in cervical region 11/30/2018 Encounters Date Type Department Care Team Description 03/26/2025 Telephone [facility] Medical [facility] Care [address] [place] [phone] Beckham Angie Med Refill 03/26/2025 Orders Only [facility] Medical [address] [phone] Jerri Alejandre, SHAHIDA Chronic bilateral low back pain with bilateral sciatica; Chronic neck pain; Other chronic pain 03/19/[address] [phone] Carrothers, Edilia Med Refill 03/19/2025 Documentation [facility] Medical [facility] Care [address] [place] [phone] Karina Gillespie MD 03/13/2025 3:00 PM CDT Office Visit [facility] Endocrinology Metabolism and Lipid [address] [facility] [address], [address] [place] [address] Maci Arauz MD Pituitary abnormality (Primary Dx); Class 1 obesity due to excess calories with serious comorbidity and body mass index (BMI) of 33.0 to 33.9 in adult 03/13/[address] [phone] Beckham Angie Med Refill 03/12/[address] [phone] Carrothers, Edilia Med Refill 03/12/[address] [phone] Jerri Alejandre NP 03/05/[address] [phone] Karina Gillespie MD 03/05/[address] [phone] Carrothers, Edilia Med Refill 02/26/[address] [phone] Carrothers, Edilia Med Refill 02/26/2025 Orders Only [address] [phone] Jerri Alejandre, SHAHIDA Chronic bilateral low back pain with bilateral sciatica; Chronic neck pain; Other chronic pain 02/19/2025 3:00 PM CDT Telemedicine [address] [phone] Shy Culver NP Chronic bilateral low back pain with bilateral sciatica (Primary Dx); Chronic neck pain; Other chronic pain 02/19/2025 Telephone [facility] Family Medicine [address] [place] [phone] Cornell Perez MD from Last 3 Months Immunizations Immunization Administration Dates Next Due Influenza, Quadrivalent, Spl it, Preservative Free, Intramuscular 08/19/2023,08/30/2022,08/17/2021 Influenza, Trivalent, Preser vative Free, Intramuscular 10/15/2024 Influenza, Unspecified 10/15/2024(Deferr ed: Patient Refused),08/19/2023(Deferred: Patient Refused),08/28/2020 Tdap 08/17/2021(Deferred: Patient Ref used) Surgical History Surgery Date Site/Laterality Comments CHOLECYSTECTOMY TONSILLECTOMY APPENDECTOMY KNEE SURGERY BACK SURGERY NECK SURGERY HYSTERECTOMY SPINE SURGERY SECTION 2002 KNEE ARTHROSCOPY W/ LATERAL RELEASE 1984? Medical History Medical History Date Comments Depression Anxiety DDD (degenerative disc disease), cervical Ankylosing spondylitis (HCC) Nerve damage Hypertension Seizures (HCC) 1970 Asthma 1978? Mixed conductive and sensorineural hearing loss 2019 Autoimmune disease ? Migraines Family History Medical History Relation Name Comments COPD Father Sai or Hypertension Father Sai or Lung cancer Mother Relation Name Status Comments Father Sai or Mother Social History Tobacco Use Types Packs/Day Years Used Date Smoking Tobacco: Former Cigarettes Q uit: 03/18/2021 Smokeless Tobacco: Never Tobacco Cessation:Counseling Given: Not Answered AUDIT-C Answer Date Recorded Q1: How often [...] on file Sexual Orientation Not on file Obstetrics History Last Filed Vital Signs Vital Sign Reading Time Taken Comments Blood Pressure 151/82 03/13/2025 3:00 PM CDT Pulse 98 03/13/2025 3:00 PM CDT Temperature 36.8 C (98.3 F) 10/15/2024 12:28 PM GRAPHIC ART DESIGNER Respiratory Rate 18 03/13/2025 3:00 PM CDT Oxygen Saturation 95% 03/13/2025 3:00 PM CDT Inhaled Oxygen Concentration - - Weight 90.9 kg (200 lb 6.4 oz) 03/13/2025 3:00 P M CDT Height 165.1 cm (5' 5 ) 03/13/2025 3:00 PM CDT Body Mass Index 33.35 03/13/2025 3:00 PM CDT Plan of Treatment Health Maintenance Due Date Last Done Comments Colon Cancer Screening-DNA Stool 1971 Hepatitis C Screening 1971 DTaP/Tdap/Td Vaccine (1 - Tdap) 1982 Hepatitis B Screening 1989 Pneumococcal vaccine <65 (1 of 2 - PCV) 1990 Zoster Vaccine (1 of 2) 2021 Breast Cancer Screening-Mammogram 12/02/2024 12/02/2023, 12/02/2023, 12/02/2023 Regular Well Visit/Exam 18-64 03/22/2025, 03/22/2024, 02/23/2023, Additional history exists Depression Screening 08/01/2025 08/01/2024, 08/01/2024, 08/19/2023, Additional history exists Influenza Vaccine Completed 10/15/2024, , 08/30/2022, Additional history exists Medical Devices Implanted Type Area Combination Worker Device Identifier Shelf Expiration Date Model / Serial / Lot [employer] [id number] Screw Reline-C 3.5x14mm - [id number] Implanted:Qty: 4 on 03/18/2022 by Kike Torres MD at [facility] Screw Spine Cervical [employer] [id number] / / [employer] [id number] Screw Reline-C 3.5x22mm - [id number] Implanted:Qty: 1 on 03/18/2022 by Kike Torres MD at [facility] Screw Spine Cervical [employer] [id number] / / [employer] [id number] Screw Reline-C 3.5x24mm - [id number] Implanted:Qty: 1 on 03/18/2022 by Kike Torres MD at [facility] Screw Spine Cervical [employer] [id number] / / [employer] [id number] Lockscrew Reline-C 4.0mm - [id number] Implanted:Qty: 6 on 03/18/2022 by Kike Torres MD at [facility] Screw Spine Cervical [employer] [id number] / / Cspine Fusion Spine Cervical Lumbar Fusion Spine Lumbar [employer] [id number] Donald Reline-C Ti 3.5x50mm Pre-Bent - [id number] Implanted:Qty: 2 on 03/18/2022 by Kike Torres MD at [facility] Spine Cervical [employer] [id number] / / Procedures Procedure Name Priority Date/Time Associated Diagnosis Comments MAMMOGRAPHY Routine 12/02/2023 from Last 3 Months or Most Recently Relevant to Health Maintenance Results * HM MAMMOGRAPHY (12/02/2023) Mammography Normal us Historical Provider HEALTH MAINTENANCE Final Result from Last 3 Months or Most Recently Relevant to Health Maintenance Insurance [facility] Advance Directives For more information, please contact: [phone] * Full Code (Latest Code Status on File) Date Activated Date Inactivated Comments 08/29/2022 5:37 PM 09/01/2022 5:56 PM * Full Code Date Activated Date Inactivated Comments 03/17/2022 3:54 PM 03/22/2022 5:31 PM Care Teams Chain Mender Relationship Specialty Start Date End Date Cornell Perez MD [address] [place] [address] PCP - General Family Medicine 08/17/21
--- OUTSIDE RECORDS SUMMARY | 2025-03-30 15:34 | XMS_ITS | Referral Summary ---
Author Organization [address] Address [address] [place] [phone] Care Team Providers Care Patient Account Analyst Name Role Phone Cornell Perez MD Primary Care Provid er Encounters Date Type Department Care Team Description 03/26/2025 Telephone [facility] Medical [facility] Care [address] [place] [phone] Angie Beckham Med Refill 03/26/2025 Orders Only [address] [phone] Jerri Alejandre, SHAHIDA Chronic bilateral low back pain with bilateral sciatica; Chronic neck pain; Other chronic pain 03/19/[address] [phone] Carrothers, Edilia Med Refill 03/19/[address] [phone] Karina Gillespie MD 03/13/[address] [phone] Angie Beckham Med Refill 03/13/2025 3:00 PM CDT Office Visit [facility] Endocrinology Metabolism and Lipid [address] [facility] [address] 1, [address] [place] [address] Maci Arauz MD Pituitary abnormality (Primary Dx); Class 1 obesity due to excess calories with serious comorbidity and body mass index (BMI) of 33.0 to 33.9 in adult 03/12/[address] [phone] Carrothers, Edilia Med Refill 03/12/[address] [phone] Jerri Alejandre NP 03/05/[address] [phone] Karina Gillespie MD 03/05/[address] [phone] Carrothers, Edilia Med Refill 02/26/[address] [phone] Carrothers, Edilia Med Refill 02/26/2025 Orders Only [address] [phone] Jerri Alejandre NP Chronic bilateral low back pain with bilateral sciatica; Chronic neck pain; Other chronic pain 02/19/2025 3:00 PM CDT Telemedicine [address] [phone] Shy Culver NP Chronic bilateral low back pain with bilateral sciatica (Primary Dx); Chronic neck pain; Other chronic pain 02/19/[address] [facility] Family Medicine [address] [phone] Cornell Perez MD from Last 3 Months Allergies Active Allergy Reactions Criticality Noted Date [...] or minimal response. 1 each 023 Active [employer] Delica Plus Lancet 33 gauge misc Test [...] mouth nightly 90 tablet 3 024 Active [employer] Ultra Test strip USE TO TEST BLOOD SUGAR ONE TO THREE TIMES DAILY 100 strip 5 024 Active amLODIPine (NORVASC) 5 mg tablet TAKE 1 TABLET(5 MG) BY MOUTH DAILY 100 tablet 1 024 Active pregabalin (LYRICA) 150 mg capsule Take 1 capsule (150 mg total) by mouth 2 (two) times a day 60 capsule 5 Active omeprazole (PriLOSEC) 40 mg capsule TAKE [...] (03/11/2022): Added automatically from request for surgery [id number] Essential hypertension 06/18/2020 Depression with anxiety 12/09/2019 Neck pain 06/18/2019 Cervical radiculopathy 06/18/2019 Lumbar radiculopathy 11/30/2018 Pain of lumbar spine 11/30/2018 Degeneration of lumbar intervertebral disc 11/30 Spinal stenosis in cervical region 11/30/2018 Immunizations Immunization Administration Dates Next Due Influenza, Quadrivalent, Spl it, Preservative Free, Intramuscular 08/19/2023,08/30/2022,08/17/2021 Influenza, Trivalent, Preser vative Free, Intramuscular 10/15/2024 Influenza, Unspecified 10/15/2024(Deferr ed: Patient Refused),08/19/2023(Deferred: Patient Refused),08/28/2020 Tdap 08/17/2021(Deferred: Patient Ref used) Social History Tobacco Use Types Packs/Day Years [...] on file Sexual Orientation Not on file Last Filed Vital Signs Vital Sign Reading Time Taken Comments Blood Pressure 151/82 03/13/2025 3:00 PM CDT Pulse 98 03/13/2025 3:00 PM CDT Temperature 36.8 C (98.3 F) 10/15/2024 12:28 PM [employer] Respiratory Rate 18 03/13/2025 3:00 PM CDT Oxygen Saturation 95% 03/13/2025 3:00 PM CDT Inhaled Oxygen Concentration - - Weight 90.9 kg (200 lb 6.4 oz) 03/13/2025 3:00 P M CDT Height 165.1 cm (5' 5 ) 03/13/2025 3:00 PM CDT Body Mass Index 33.35 03/13/2025 3:00 PM CDT Plan of Treatment Not on file Medical Devices Implanted Type Area Optics Engineer Device Identifier Shelf Expiration Date Model / Serial / Lot [employer] [id number] Screw Reline-C 3.5x14mm - [id number] Implanted:Qty: 4 on 03/18/2022 by Kike Torres MD at [facility] Screw Spine Cervical [employer] [id number] / / [employer] [id number] Screw Reline-C 3.5x22mm - [id number] Implanted:Qty: 1 on 03/18/2022 by Kike Torres MD at [facility] Screw Spine Cervical [employer] [id number] / / [employer] [id number] Screw Reline-C 3.5x24mm - [id number] Implanted:Qty: 1 on 03/18/2022 by Kike Torres MD at [facility] Screw Spine Cervical [employer] [id number] / / [employer] [id number] Lockscrew Reline-C 4.0mm - [id number] Implanted:Qty: 6 on 03/18/2022 by Kike Torres MD at [facility] Screw Spine Cervical [employer] [id number] / / Cspine Fusion Spine Cervical Lumbar Fusion Spine Lumbar [employer] [id number] Donald Reline-C Ti 3.5x50mm Pre-Bent - [id number] Implanted:Qty: 2 on 03/18/2022 by Kike Torres MD at [facility] Spine Cervical [employer] [id number] / / Procedures Procedure Name Priority Date/Time Associated Diagnosis Comments MAMMOGRAPHY Routine 12/02/2023 from Last 3 Months or Most Recently Relevant to Health Maintenance Results * MAMMOGRAPHY (12/02/2023) [facility] Mammography Normal Historical Provider HEALTH MAINTENANCE Final Result from Last 3 Months or Most Recently Relevant to Health Maintenance Insurance [facility] Advance Directives For more information, please contact: [phone] * Full Code (Latest Code Status on File) Date Activated Date Inactivated Comments 08/29/2022 5:37 PM 09/01/2022 5:56 PM * Full Code Date Activated Date Inactivated Comments 03/17/2022 3:54 PM 03/22/2022 5:31 PM Care Teams Patient Account Analyst Relationship Specialty Start Date End Date Cornell Perez MD [facility] [address] [place] [address] PCP - General Family Medicine 08/17/21
--- OUTSIDE RECORDS SUMMARY | 2025-03-30 15:34 | XMS_ITS | Encounter Summary ---
Author Organization [facility] Address [address] [place] [address] Care Team Providers Care Irrigation Teacher Name Role Phone Unavailable Primary Care Provider Unavailabl e Encounter Details Date Type Department Care Team (Late st Contact Info) Description 08/29/2023 Lab Requisition [facility] - DermPath Lab [address] [place] [id number] Cornell Perez MD [address] [id number] Social History Tobacco Use Types Packs/Day Years Used Date Smoking Tobacco: Never Assessed Comments Unknown Sex and Gender Information Value Date Recorded Sex Assigned at Not on file Legal Sex Female 2:58 PM CDT Gender Identity Not on file Sexual Orientation Not on file documented as of this encounter Plan of Treatment Not on file documented as of this encounter Procedures Procedure Name Priority Date/Time Associated Diagnosis Comments DERMATOPATHOLOGY Routine 08/26/2023 12:0 0 AM CDT documented in this encounter Results * DERMATOPATHOLOGY (08/26/2023 12:00 AM CDT) Case Report Dermatopathology Report Case: [id number] Authorizing Provider: Cornell Perez MD Collected: 08/26/2023 12:00 AM Ordering Location: [facility] DermPath Lab Received: 08/29/2023 04:22 PM Pathologist: Jaleesa William MD Specimen: Skin, left arm 12:58 PM CDT DERMATOPATHOLOGY LABORATORY Final Diagnosis Specimen A. SKIN, left arm: DERMATOFIBROMA (D23.9) 12:58 PM CDT DERMATOPATHOLOGY LABORATORY Clinical History Dermatofibroma 3 12:58 PM CDT DERMATOPATHOLOGY LABORATORY Gross Description Specimen A: Received is one formalin filled container labeled with the patient's name and designated left arm. The specimen consists of a 10x7x4 mm piece of skin. The margin is inked green. The specimen is bisected lengthwise and submitted in 1 cassette. Jar 0. 12:58 PM CDT DERMATOPATHOLOGY LABORATORY Microscopic Description Specimen A. SKIN, left arm: There is epidermal hyperplasia. Within the dermis, there are fibrohistiocytic cells in haphazard array among coarse collagen bundles. 12:58 PM CDT DERMATOPATHOLOGY LABORATORY Disclaimer An external and internal positive and negative controls are appropriate for the histochemical, immunohistochemical and immunofluorescence stain(s) in this case (if any), except where stated explicitly. The performance characteristics of the stain(s) cited in this report were developed and its performance characteristic determined by the Dermatopathology Laboratory at [facility], directed by Dr. Renetta Redd. These tests need not be, and therefore are not, approved by the [place] Food and Drug Administration. The tests are used for clinical purposes. Billing Codes Specimen Charges Stain Charges 08990 1 12:58 PM CDT DERMATOPATHOLOGY LABORATORY Embedded Images 12:58 PM CDT DERMATOPATHOLOGY LABORATORY Pathology/Cytolog y TISSUE SPECIMEN FROM SKIN / Unknown 08/26/2023 08/29/2023 4:22 PM CDT us Cornell Perez MD LAB - PATHOLOGY/CYTOLOGY ORD ERABLES Final Result DERMATOPATHOLOGY LABORATORY [facility] - Department of Dermatology [address], [address] [phone] documented in this encounter Visit Diagnoses Not on filedocumented in this encounter
== END 2025-03-30 00:08 | disposition home or self-care (01) ==
PROVIDERS: Emergency Provider Emergency Medicine
DX: S39.012A Strain of muscle, fascia and tendon of lower back, initial encounter (principal); G89.29 Other chronic pain; M48.02 Spinal stenosis, cervical region; M51.369 Other intervertebral disc degeneration, lumbar region without mention of lumbar back pain or lower extremity pain; M48.061 Spinal stenosis, lumbar region without neurogenic claudication; W10.9XXA Fall (on) (from) unspecified stairs and steps, initial encounter
CPT/HCPCS: 70450; 72125; 72128; 72131; 73502; 73562; 99284; A9270